=== PATIENT | female | born 1985 | race Caucasian/White ===

== ENCOUNTER 2018-03-04 11:15 | Emergency (ER) | payer OTHER ==
[~2018-03-04] VITALS: Ht 162.6 cm; Wt 65.3 kg
[~2018-03-04 11:15] MED LIST: HUMALOG; [UNRECOGNIZED DRUG - OTHER]; amoxicillin PO
[2018-03-04] MEDS ORDERED: SODIUM CHLORIDE 0.9% 1,000 ML IV ONE (12:00)
[2018-03-04] MEDS ORDERED: SODIUM CHLORIDE FLUSH 10ML SYR IVF ONE (12:00)
[2018-03-04] MEDS ORDERED: SODIUM CHLORIDE 0.9% 1,000ML IVBOLUS ONE (12:00)
[2018-03-04] MEDS ORDERED: LORazepam 2 MG/ML, 1ML ONE (12:22)
[2018-03-04] MEDS ORDERED: LORazepam 2 MG/ML, 1ML IVPush ONE (12:30)
[2018-03-04 12:34] LABS: BASOPHILS # (AUTO) 0.03 x10^3/uL (0-0.1); BASOPHILS % (AUTO) 0 % (0-1); EOSINOPHILS # (AUTO) 0.16 x10^3/uL (0-0.4); EOSINOPHILS % (AUTO) 2 % (1-7); LYMPHOCYTES # (AUTO) 2.27 x10^3/uL (1-3.4); LYMPHOCYTES % (AUTO) 26 % (22-44); MD NO; MEAN CORPUSCULAR HEMOGLOBIN 31.3 pg (27.0-34.8); MONOCYTES # (AUTO) 0.93 x10^3/uL (0.2-0.8); MONOCYTES % (AUTO) 11 % (2-9); NEUTROPHILS # (AUTO) 5.21 x10^3/uL (1.8-6.8); NEUTROPHILS % (AUTO) 61 % (42-75); PLATELET COUNT 453 x10^3/uL (130-400); RED BLOOD COUNT 5.06 x10^6/uL (3.82-5.3); RED CELL DISTRIBUTION WIDTH 12.9 % (9.6-15.2)
[2018-03-04 12:36] LABS: PH, VENOUS 7.474 pH (7.320-7.420)
[2018-03-04 12:37] LABS: FIO2 ROOM AIR %
[2018-03-04 12:42] LABS: ACETONE, SERUM Moderate(40mg/dL) mg/dL (Negative)
[2018-03-04 12:46] LABS: ALANINE AMINOTRANSFERASE 14 U/L (12-78); ALBUMIN 4.2 g/dL (3.4-5.0); ANION GAP 16 mmol/L (5-15); CALCIUM 9.9 mg/dL (8.5-10.1); CHLORIDE 104 mmol/L (98-107)
[2018-03-04 12:49] LABS: ALKALINE PHOSPHATASE 53 U/L (45-117); BILIRUBIN,TOTAL 1.1 mg/dL (0.2-1.0); CREATININE 0.77 mg/dL (0.55-1.02)
[2018-03-04 13:35] LABS: MICROSCOPIC NOT IND
[2018-03-04 13:42] LABS: CULTURE INDICATED? NO
[2018-03-04 14:22] VITALS: BP 124/72
== END 2018-03-04 14:24 | disposition home or self-care (01) ==
LOC: ED 14:15
DX: E10.65 Type 1 diabetes mellitus with hyperglycemia (principal); F41.1 Generalized anxiety disorder; T50.905A Adverse effect of unspecified drugs, medicaments and biological substances, initial encounter; R06.4 Hyperventilation; Y92.89 Other specified places as the place of occurrence of the external cause
CPT/HCPCS: 36415; 71045; 80053; 81003; 82010; 82803; 83690; 83735; 85025; 93005; 96361; 96374; 99285; J2060; J7030

== ENCOUNTER 2018-06-25 09:07 | Emergency (ER) | payer OTHER ==
[~2018-06-25] VITALS: Ht 162.6 cm; Wt 62.1 kg
[2018-06-25 09:09] VITALS: BP 117/81
[2018-06-25] MEDS ORDERED: ONDANSETRON ODT 4 MG PO ONE (11:30)
[2018-06-25] MEDS ORDERED: ONDANSETRON ODT 4 MG ONE (11:49)
== END 2018-06-25 13:41 | disposition home or self-care (01) ==
LOC: ED 10:18
DX: S16.1XXA Strain of muscle, fascia and tendon at neck level, initial encounter (principal); S39.012A Strain of muscle, fascia and tendon of lower back, initial encounter; S29.012A Strain of muscle and tendon of back wall of thorax, initial encounter; S40.012A Contusion of left shoulder, initial encounter; S40.022A Contusion of left upper arm, initial encounter; Y93.89 Activity, other specified; V49.49XA Driver injured in collision with other motor vehicles in traffic accident, initial encounter; Y92.89 Other specified places as the place of occurrence of the external cause; Y99.8 Other external cause status
CPT/HCPCS: 70450; 71046; 72072; 72125; 73030; 99284; Q0162

== ENCOUNTER → 2020-06-12 | Outpatient (CLI) | payer OTHER | END | disposition home or self-care (01) | LOC: RAD 11:59 | PROVIDERS: ATTEND Physician Assistant Surgical | DX: M79.672 Pain in left foot (principal); Z87.81 Personal history of (healed) traumatic fracture ==

== ENCOUNTER 2020-09-04 09:54 | Emergency (ER) | payer OTHER ==
[~2020-09-04] VITALS: Ht 162.6 cm; Wt 66.1 kg
[2020-09-04] MEDS ORDERED: ONDANSETRON 2MG/ML, 2ML IVPush ONE ×2 (10:30→13:30)
[2020-09-04] MEDS ORDERED: SODIUM CHLORIDE FLUSH 10ML SYR IVF ONE (10:30)
--- NOTE | 2020-09-04 10:46 | NUR ---
PT PRESENTS TO ED WITH C/O RIGHT LOWER ABD PAIN RADIATING TO RIGHT FLANK ONSET THIS AM. PT HAS HAD EMESIS X 2 THIS AM, DENIES OTHER SX. PT AWAKE, ALERT, GROANING AND CURLED IN POSITION. THIS RN UNABLE TO START PIV, TASK RN AT BEDSIDE FOR ULTRASOUND GUIDED PLACEMENT.
[2020-09-04] MEDS ORDERED: ONDANSETRON 2MG/ML, 2ML ONE ×2 (10:49→13:22)
[2020-09-04] MEDS ORDERED: HYDROmorphone 1 MG/ML, 1ML INJ ONE ×3 (10:49→14:41)
[2020-09-04] MEDS: HYDROmorphone 2 MG/ML, 1ML IVPush PRN ×2 (10:58→11:42)
--- NOTE | 2020-09-04 11:01 | NUR ---
PIV PLACED BY TASK RN WITH ULTRASOUND, PT MEDICATED PER EMAR, TOLERATED WELL. URINE SAMPLE WALKED TO LAB. US AT BEDSIDE. BP AND SPO2 MONITORS IN PLACE. PT RATING ABD PAIN AT 6/10 AT THIS TIME.
[2020-09-04 11:02] LABS: BASOPHILS % (AUTO) 1 % (0-1); EOSINOPHILS % (AUTO) 3 % (1-7); LYMPHOCYTES % (AUTO) 28 % (22-44); MEAN CORPUSCULAR HGB CONC 33.5 g/dL (32.4-35.8); MEAN PLATELET VOLUME 7.3 fL (7.4-10.4); MONOCYTES % (AUTO) 11 % (2-9); NEUTROPHILS % (AUTO) 57 % (42-75); PLATELET COUNT 443 x10^3/uL (130-400); RED BLOOD COUNT 4.92 x10^6/uL (3.82-5.3); RED CELL DISTRIBUTION WIDTH 13.7 % (9.6-15.2)
[2020-09-04 11:06] LABS: MD NO
[2020-09-04 11:11] LABS: ALANINE AMINOTRANSFERASE 15 U/L (12-78); ALBUMIN 4.1 g/dL (3.4-5.0); ANION GAP 9 mmol/L (5-15); CALCIUM 9.2 mg/dL (8.5-10.1); CHLORIDE 109 mmol/L (98-107); CREATININE 0.79 mg/dL (0.55-1.02)
[2020-09-04 11:16] LABS: ALKALINE PHOSPHATASE 80 U/L (45-117); BILIRUBIN,TOTAL 0.7 mg/dL (0.2-1.0); TOTAL PROTEIN 7.5 g/dL (6.4-8.2)
--- NOTE | 2020-09-04 11:25 | NUR ---
lab called to run urine sent, [email or web address]
--- NOTE | 2020-09-04 11:27 | NUR ---
US resulted, OSMANY Alonso notified. orders discussed with martin CARVAJAL ordered in error.
[2020-09-04] MEDS ORDERED: LORazepam 2 MG/ML, 1ML IVPush PRN (11:30)
[2020-09-04 11:45] LABS: MICROSCOPIC INDICATED
--- NOTE | 2020-09-04 11:45 | NUR ---
LATE ENTRY FOR 1145 D/T PATIENT CARE: PT MEDICATED PER EMAR FOR WORSENING ABD PAIN, PLACED ON OXYGEN AT 2L/MIN VIA NC FOR TRANSPORT. PT TAKEN TO CT.
--- NOTE | 2020-09-04 11:50 | NUR ---
PT BACK FROM CT, SCAN PUSHED BACK TO CLEAR SCANNER FOR AN EMERGENT ORDER.
--- NOTE | 2020-09-04 12:13 | NUR ---
PT REPORTS PAIN IMRPOVED TO TOLERABLE LEVEL OF 3/10. PT A&O, RESPS EVEN AND UNLABORED, CALM AND COOPERATIVE. PT TAKEN TO CT AT THIS TIME.
--- NOTE | 2020-09-04 12:32 | NUR ---
PT BACK FROM CT.
[2020-09-04] MEDS ORDERED: OMNIPAQUE 350 MG/ML, 100ML BOTTLE ONE (12:44)
[2020-09-04] MEDS ORDERED: KETOROLAC 30 MG/1 ML IVPush STA (13:17)
--- NOTE | 2020-09-04 13:18 | NUR ---
OSMANY Alonso notified of pt c/o persistent abd pain, CT results reveiwed. additional pain and nausea meds requested by pt, notified. order received for toradol 30mg IV push, zofran 4mg IV push.
[2020-09-04] MEDS ORDERED: KETOROLAC 30 MG/1 ML ONE (13:22)
[2020-09-04 14:47] VITALS: BP 111/73
[2020-09-04] MEDS ORDERED: HYDROmorphone 2 MG/ML, 1ML IVPush PRN (15:00)
== END 2020-09-04 15:19 | disposition home or self-care (01) ==
LOC: ED 11:23
DX: N13.2 Hydronephrosis with renal and ureteral calculous obstruction (principal); R00.0 Tachycardia, unspecified; E11.9 Type 2 diabetes mellitus without complications; Z90.49 Acquired absence of other specified parts of digestive tract
CPT/HCPCS: 36415; 74177; 76857; 80053; 81001; 82962; 84703; 85025; 87086; 96374; 96375; 96376; 99285; J1170; J1885; J2405; Q9967